=== PATIENT | female | born 1990 | race Two or more races ===

== ENCOUNTER → 2019-11-27 | Outpatient (CLI) | payer OTHER | END | disposition home or self-care (01) | LOC: PRENATAL 13:57 | PROVIDERS: ATTEND Obstetrics & Gynecology | DX: O99.89 Other specified diseases and conditions complicating pregnancy, childbirth and the puerperium (principal); O35.3XX1 Maternal care for (suspected) damage to fetus from viral disease in mother, fetus 1; O35.0XX1 Maternal care for (suspected) central nervous system malformation in fetus, fetus 1 ==

== ENCOUNTER → 2020-04-09 | Outpatient (CLI) | payer OTHER | END | disposition home or self-care (01) | LOC: PRENATAL 11:30 | PROVIDERS: ATTEND Obstetrics & Gynecology Maternal & Fetal Medicine | DX: O26.843 Uterine size-date discrepancy, third trimester (principal); O36.8931 Maternal care for other specified fetal problems, third trimester, fetus 1; Z36.89 Encounter for other specified antenatal screening; Z3A.37 37 weeks gestation of pregnancy ==

== ENCOUNTER 2022-05-05 08:05 | Outpatient (CLI) | payer OTHER | END 2022-05-05 09:27 | disposition home or self-care (01) | LOC: PRENATAL 08:05 | PROVIDERS: ATTEND Obstetrics & Gynecology Maternal & Fetal Medicine | DX: O35.9XX0 Maternal care for (suspected) fetal abnormality and damage, unspecified, not applicable or unspecified (principal); O34.219 Maternal care for unspecified type scar from previous cesarean delivery; Z3A.20 20 weeks gestation of pregnancy ==